=== PATIENT | female | born 1995 | race Asian ===

== ENCOUNTER 2019-12-22 20:43 | Emergency (ER) | payer OTHER ==
[~2019-12-22] VITALS: Ht 149.9 cm; Wt 65.8 kg
[2019-12-22 20:57] VITALS: Ht 149.9 cm; Wt 65.8 kg
[2019-12-22 21:48] LABS: BASOPHIL % 0.3 % (0-2); PLATELET COUNT 398 x10^3mcL (130-400); RED CELL DISTRIBUTION WIDTH 12.8 % (11.5-14.5)
[2019-12-22 21:56] LABS: CARBON DIOXIDE 30.3 mmol/L (21-32); CHLORIDE SERUM 106 mmol/L (98-107); GFR1 > 60 mL/min; GLUCOSE SERUM 82 mg/dL (74-106); POTASSIUM SERUM 4.5 mmol/L (3.5-5.1); SODIUM SERUM 144 mmol/L (136-145)
[2019-12-22 22:01] LABS: ALKALINE PHOSPHATASE 66 U/L (46-116); ALT/SGPT 20 U/L (14-59); AST/SGOT 15 U/L (15-37); BILIRUBIN TOTAL 0.25 mg/dL (0.20-1.00); TOTAL PROTEIN, SERUM 7.4 g/dL (6.4-8.2)
[2019-12-22 23:06] LABS: microscopic required? NO
[2019-12-22 23:10] LABS: urine erythrocyte NEGATIVE (NEGATIVE)
[2019-12-22 23:51] VITALS: BP 113/83
== END 2019-12-23 01:17 | disposition home or self-care (01) ==
LOC: ED 20:43
PROVIDERS: Emergency Medicine; Internal Medicine
DX: R10.2 Pelvic and perineal pain (principal); R10.30 Lower abdominal pain, unspecified; N89.8 Other specified noninflammatory disorders of vagina
CPT/HCPCS: 36415; 87491; 87591; J1885

== ENCOUNTER 2020-06-12 01:38 | Emergency (ER) | payer OTHER ==
[~2020-06-12] VITALS: Ht 149.9 cm; Wt 63.5 kg
[2020-06-12 01:40] VITALS: Ht 149.9 cm; Wt 63.5 kg
[2020-06-12 04:59] VITALS: BP 103/68
== END 2020-06-12 04:59 | disposition home or self-care (01) ==
LOC: ED 01:38
DX: L50.0 Allergic urticaria (principal); Z91.041 Radiographic dye allergy status
CPT/HCPCS: J1200; J2930; J3490; J7030